=== PATIENT | male | born 1985 | race African-American/Black ===

== ENCOUNTER 2018-10-04 07:34 | Inpatient (IN) | payer OTHER ==
[2018-10-04] VITALS (13 sets, daily range): BP systolic 114–148; BP diastolic 69–98
[~2018-10-04] VITALS: Ht 203.2 cm; Wt 80.3 kg
[~2018-10-04 07:34] MED LIST: ACTOS30 MG ORAL; Dexamethasone 20mg/5ml IVP ONE; GLIPIZIDE10 MG PO; HYDROCODONE PO; METFORMIN HCL1000 M1 ORAL; ceFAZolin sod 1 GM in NS 55 ML IVPB ONE
[2018-10-04] MEDS ORDERED: LR 1000ml 1,000 ML IVLG SCH (09:24)
--- NOTE | 2018-10-04 09:25 | Anethesia Preoperative Eval ---
Anesthesia Pre-op PMH/ROS General Date of Evaluation: Oct 04, 2018 Time of Evaluation: 10:54 Anesthesiologist: Zoila ASA Score: ASA 2 Mallampati Score Class I : Soft palate, uvula, fauces, pillars visible Class II: Soft palate, uvula, fauces visible Class III: Soft palate, base of uvula visible Class IV: Only hard plate visible Mallampati Classification: Class II Surgeon: Angela Diagnosis: Back Pain Surgical Procedure: ALIF L5-S1 Anesthesia History: none Family History: no anesthesia problems Allergies: Coded Allergies: No Known Allergies (Unverified , 10/03/18) Medications: see eMAR Patient NPO?: Yes NPO Date: Oct 03, 2018 NPO Time: 2358 Past Medical History Cardiovascular: Reports: HTN Endocrine: Reports: DM Anesthesia Pre-op Phys. Exam Physician Exam Last Vital Signs Date Time Temp Pulse Resp B/P (MAP) Pulse Ox O2 Delivery O2 Flow Rate FiO2 10/04/18 08:30 98.1 85 20 128/76 (93) 96 10/04/18 08:20 Room Air Constitutional: NAD Neurologic: CN 2-12 intact Cardiovascular: RRR Respiratory: CTA Gastrointestinal: S/NT/ND Airway Exam Mallampati Score: Class II MO: full ROM: full Teeth: intact Anesthesia Pre-op A/P Risk Assessment & Plan Assessment: ASA 2 Plan: GA, SED, GlideScope Go Status Change Before Surgery: No Pre-Antibiotics Dru Grams Ancef IV Given Within 1 Hr of Incision: Yes Time Given: 14:19 Krishan Cummings MD Oct 04, 2018 09:25
[2018-10-04] MEDS ORDERED: LORazepam Inj 2mg/ml 1ml IV PRN (09:30)
[2018-10-04] MEDS ORDERED: Atropine Sulfate 0.4mg/ml inj IVP PRN (09:30)
[2018-10-04] MEDS ORDERED: Ketorolac 30mg Inj IV PRN ×2 (09:30)
[2018-10-04] MEDS ORDERED: Meperidine 50mg/ml Inj(FOR RIGORS ONLY) IVP PRN (09:30)
[2018-10-04] MEDS ORDERED: fentaNYL 100 mcg/2 mL IV PRN (09:30)
[2018-10-04] MEDS ORDERED: Metoclopramide 10mg/2ml Inj IVP PRN (09:30)
[2018-10-04] MEDS ORDERED: Midazolam 2mg/2ml Inj IVP PRN (09:30)
[2018-10-04] MEDS ORDERED: HYDROcodone/Acetamin 7.5/325 tab ORAL PRN (09:30)
[2018-10-04] MEDS ORDERED: HYDROcodone/Acetamin 5/325 tab ORAL PRN (09:30)
[2018-10-04] MEDS ORDERED: DiphenhydrAMINE 50mg/ml Inj IVP PRN (09:30)
[2018-10-04] MEDS ORDERED: Acetaminophen (Non formulary) 100 ML IV ONE (09:30)
[2018-10-04] MEDS ORDERED: oxyCODONE HCL/Acetaminophen 5/325mg ORAL PRN (09:30)
[2018-10-04] MEDS ORDERED: Hydromorphone 0.5mg/0.5ml inj IVP PRN (09:30)
[2018-10-04] MEDS ORDERED: Thrombin 5000 units TOPIC ONE ×2 (09:34→12:36)
[2018-10-04] MEDS ORDERED: Heparin 5000 units/ml inj ONE (09:34)
[2018-10-04] MEDS ORDERED: Lidocaine 1% 10mg/ml/Epi 0.005mg/ml 30ml vial INJ ONE (09:34)
[2018-10-04] MEDS ORDERED: Lidocaine 1% Plain 30 ml INJ ONE ×3 (09:35→12:22)
[2018-10-04] MEDS ORDERED: Bupivacaine w/Epi 0.5% 30ml Vial INJ ONE (09:35)
[2018-10-04] MEDS ORDERED: Ropivacaine 5mg/ml Vial 30ml INJ ONE (09:35)
[2018-10-04] MEDS ORDERED: Bacitracin 50000 Units Vial ONE (09:35)
[2018-10-04] MEDS ORDERED: Lidocaine 1% MPF 10mg/ml 5ml ONE (09:38)
[2018-10-04] MEDS ORDERED: Sodium Chloride 10ml vial INJ ONE (09:38)
[2018-10-04] MEDS ORDERED: fentaNYL 100 mcg/2 mL IV ONE ×3 (09:38→13:48)
[2018-10-04] MEDS ORDERED: Chloraseptic Spray 20mL Bottle ORAL PRN (10:15)
[2018-10-04] MEDS ORDERED: LORazepam 0.5mg tab ORAL PRN (10:15)
--- NOTE | 2018-10-04 10:19 | Pre-Procedure Note/Attestation ---
Pre-Procedure Note/Attestation Complete Prior to Procedure Planned Procedure: not applicable Procedure Narrative: ALIF L5-S1 Anterior Plate BMP Indications for Procedure Pre-Operative Diagnosis: Post trauma clinical instability pain Attestation I attest that I discussed the nature of the procedure; its benefits; risks and complications; and alternatives (and the risks and benefits of such alternatives ), prior to the procedure, with the patient (or the patient's legal customer field representative). I attest that, if there was a reasonable possibility of needing a blood transfusion, the patient (or the patient's legal customer field representative) was given the [facility] standardized written summary, pursuant to the Kedar Nicolas Blood Safety Act ([place] Health and Safety Code # 1645, as amended). I attest that I re-evaluated the patient just prior to the surgery and that there has been no change in the patient's H&P, except as documented below: Misael Miller MD Oct 04, 2018 10:19
[2018-10-04] MEDS ORDERED: Propofol 1,000mg/ 100ml btl IV ONE (11:00)
[2018-10-04] MEDS ORDERED: LR 1000ml ONE (11:00)
[2018-10-04] MEDS ORDERED: Sterile Water Irrig 1000ml IRRIG ONE (11:00)
[2018-10-04] MEDS ORDERED: PCA HYDROmorphone 1mg/ml 30 ML IV PRN ×2 (11:30)
[2018-10-04] MEDS ORDERED: Gelfoam Size TOPIC ONE (11:38)
[2018-10-04] MEDS ORDERED: NS Irrig 1000ml IRRIG ONE (12:33)
[2018-10-04] MEDS ORDERED: Glycopyrrolate 0.2mg/ml 1ml Vial ONE (13:33)
[2018-10-04] MEDS ORDERED: Neostigmine 1mg/ml 10ml Inj ONE (13:33)
--- NOTE | 2018-10-04 13:41 | Brief Operative Note ---
Immediate Post Operative Note Operative Note Pre-op Diagnosis: Post trauma clinical instability pain Procedure: Increased complexity vascular anatomy SSEP EMG Xray Magnification BMP ALIF L5-S1 with anterior internal plate fixation Post-op Diagnosis: same as pre-op Findings: consistent w/pre-op dx studies Surgeon: Joaquin DAVENPORT Additional Surgeons: Bill DAVENPORT Anesthesiologist: Zoila DAVENPORT Anesthesia: general Specimen: yes Complications: none Condition: stable Fluids: anesthesia Estimated Blood Loss: volume Drains: none Implant(s) used?: Yes Misael Miller MD Oct 04, 2018 13:41
[2018-10-04] MEDS ORDERED: Naloxone 0.4mg/ml Inj IVP PRN (13:45)
--- NOTE | 2018-10-04 14:08 | Immediate Post-Op Evaluation ---
Immediate Post-Op Evalulation Immediate Post-Op Evalulation Procedure: ALIF L5-S1 Date of Evaluation: Oct 04, 2018 Time of Evaluation: 14:19 IV Fluids: 1000 LR Blood Products: 0 Estimated Blood Loss: 40 Urinary Output: 0 Blood Pressure Systolic: 134 Blood Pressure Diastolic: 89 Pulse Rate: 63 Respiratory Rate: 16 O2 Sat by Pulse Oximetry: 100 Temperature (Fahrenheit): 97.6 Pain Score (1-10): 2 Nausea: No Vomiting: No Complications 0 Patient Status: awake, reacts, patent, extubated, none Hydration Status: adequate Dru Grams Ancef IV Given Within 1 Hr of Incision: Yes Time Given: 11:16 Krishan Cummings MD Oct 04, 2018 14:08
--- NOTE | 2018-10-04 14:09 | 48 Hour Post Anesthesia Eval ---
Post Anesthesia Evaluation Procedure: ALIF L5-S1 Date of Evaluation: Oct 04, 2018 Time of Evaluation: 16:32 Blood Pressure Systolic: 133 0: 78 Pulse Rate: 74 Respiratory Rate: 18 Temperature (Fahrenheit): 98.2 O2 Sat by Pulse Oximetry: 98 Airway: patent Nausea: No Vomiting: No Pain Intensity: 2 Cardiopulmonary Status: Stable Follow-up Care/Observations: 0 Post-Anesthesia Complications: 0 Follow-up care needed: N/A Krishan Cummings MD Oct 04, 2018 14:09
[2018-10-04] MEDS ORDERED: PCA HYDROmorphone 1mg/ml 30 ML IV ONE (14:42)
--- NOTE | 2018-10-04 15:52 | Diagnostic Imaging Report ---
Indication: Back pain Technique: Intraoperative fluoroscopic images submitted for archival the PACS Operating surgeon: Remington Miller Fluoroscopy time: 17.2 seconds Total fluoroscopy dose: 8.81 mGy Number of fluoroscopic images obtained: 3 Comparison: None Findings: Intraoperative images submitted for archival the PACS. Initial image demonstrates surgical material projecting anterior to the presumed L5-S1 disc space (note the entire lumbar spine not imaged to assess for the presence of transitional lumbosacral anatomy). Subsequent images demonstrate anterior fusion at this level by means of an anterior plate affixed by screws as well as interbody disc spacer/artificial disc material. Note that the radiologist was not present during image acquisition. Impression: Intraoperative images from spinal surgery. Please see operative report.
[2018-10-04] MEDS ORDERED: Rate Change PCA 1 Each MISC PRN (16:30)
[2018-10-04] MEDS: D5 1/2NS 1,000 ML IV SCH ×2 (16:45→19:23)
[2018-10-04] MEDS ORDERED: PCA Education Pamphlet MISC SCH (17:00)
--- NOTE | 2018-10-04 17:00 | NUR ---
NURSE NOTES: Pt is able to move extremities , no bowel sounds present. No nausea , lungs sounds clear. Pedal pulses present and palpable. Able to answer questions appropriately Addendum: 10/08/18 at 0644 by KANCHAN VASQUEZ RN nurse's notes: per patient has been passing gas but no BM yet
[2018-10-04] MEDS ORDERED: Labetalol 5mg/ml 20ml vial IV PRN (17:30)
[2018-10-04] MEDS: PCA shift volume MISC SCH (19:00)
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
--- NOTE | 2018-10-04 20:15 | NUR ---
Nursing Notes: received patient awake, alert and oriented; c/o of "15/10" pain of lower back; s/p alif L4-S1; encourage patient to use construction controller as ordered; non-pharmacological pain interventions also encouraged; patient understood teaching but seems to need reinforcement and encouragement. small serosanguineous drainage noted on the dressing, otherwise is dry and intact. call light and urinal within reach. will continue plan of care.
--- NOTE | 2018-10-04 20:32 | NUR ---
NURSE NOTES: Dr Astorga phoned in regards to insulin coverage and current IV fluids. Gave orders for intermediate sliding scale QID as he also gave orders to D/C current iv fluids and change to 1/2 NS at 150 cc/hr. IV is patent no signs of infiltration
--- NOTE | 2018-10-04 20:35 | NUR ---
NURSE NOTES: Pt is in stable condition voided after surgery. Is able to use IS properly . SCD is on functioning. Call light is in reach n required education and encouragement for use of stockkeeper pump
--- NOTE | 2018-10-04 20:38 | NUR ---
HAND-OFF: Report given to Laurie MORAN.
[2018-10-04] MEDS: oxyCONTIN 10mg tab ORAL SCH (20:41)
[2018-10-04] MEDS: ceFAZolin sod 1 GM in D5W 55 ML IV SCH (20:41)
--- NOTE | 2018-10-04 20:44 | NUR ---
NURSE NOTES: blood sugar reported to Tony at 178. PROBLEM MANAGER setting verified with a another setting Addendum: 10/04/18 at 2045 by Iqra Hall RN setting verified with nurse yadira
--- NOTE | 2018-10-04 21:15 | Operative Note - Dictated ---
DATE OF OPERATION: 10/04/2018 PRIMARY SURGEON: Misael Miller, Ph.D.; M.D. ADDITIONAL SURGEON: Kendell Khan M.D. Vascular Surgery. ANESTHESIA: Krishan Cummings M.D. general with intubation. ESTIMATED BLOOD LOSS: Less than 50 mL. COMPLICATIONS: None. POSTOP CONDITION: Good/stable. OPERATIVE PROCEDURE: 1. Anterior interbody reconstruction, fusion, correction deformity L5-S1. 2. Placement of bone morphogenic protein osteopromotive material. 3. Anterior internal plate fixation compressive L5-S1. 4. Extenuating circumstances, vascular anatomy. Please see separate dictation Dr. Khan. 5. SSEP/EMG. 6. Intraoperative fluoroscopy interpreted by surgeons. 7. High-powered microscopic magnification dissection and anterior internal plate fixation we have. DESCRIPTION OF PROCEDURE: The patient was brought to the operating room and in the supine position, general anesthesia with intubation was induced. IV antibiotics, IV Decadron administered 30 minutes prior to incision time. Anterior abdomen sterilely prepped and draped free in usual sterile fashion. Please see separate exposure and closure dictation by Dr. Khan, vascular surgery. Identification was undertaken in the AP and lateral planes under sterile conditions, fluoroscopic guidance with markers in place L5-S1. Level was marked. Markers removed. Annulotomy was performed with care taken with vascular anatomy aberration. Diskectomy was performed to but not through the posterior longitudinal ligament. Endplates were denuded of cartilaginous endplates without violation of subchondral bone. No cerebrospinal fluid leakage was noted anytime during the procedure. Appropriate trials were undertaken with AP and lateral fluoroscopic imaging demonstrating midline and correct alignment. Interbody Aero-L prosthesis containing bone morphogenic protein as osteopromotive material was tamped into position under direct observation. Fit excellent. Fluoroscopic guidance demonstrated excellent alignment in AP and lateral planes. Internal fixation flanges inserted, locked into position. Graft incorporated in fibrin glue. Anterior internal plate fixation was undertaken in a compressive fashion with AP and lateral fluoroscopic imaging demonstrating correct alignment and positioning. Wound was copiously irrigated with antibiotic-containing saline. Please see separate closure, Dr. Khan. Misael Miller M.D. DR: SEEMA JOB#: [id number] CC:
[2018-10-04] MEDS: NovoLOG Insulin Flexpen SUBQ SCH (22:15)
[2018-10-05] VITALS: BP 105/62
--- NOTE | 2018-10-05 01:30 | Operative Note - Dictated ---
DATE OF OPERATION: 10/04/2018 VASCULAR SURGEON: Kendell Khan M.D. SPINE SURGEON: Misael Miller M.D. PREOPERATIVE DIAGNOSIS: Lumbar pain. POSTOPERATIVE DIAGNOSIS: Lumbar pain. PROCEDURE PERFORMED: 1. Anterior retroperitoneal exposure of L5-S1 vertebral interspace, right retroperitoneal approach. 2. Ligation of left internal iliac vein. INDICATIONS: The patient is a very pleasant gentleman who was seen prior to surgery. He is scheduled for an anterior spine operation. He had no prior anterior spine surgery. No history of deep venous thrombosis or bleeding complications. He has been made aware of the risks of surgery including vascular injury, possible need for blood transfusion, deep venous thrombosis. DESCRIPTION OF FINDINGS: A low vertical midline incision was used. A right retroperitoneal approach was used. There was no peritoneal or ureteral violation. There was no vascular injury. However, it was clear after exposure that there was a large internal iliac vein coursing directly over the midportion of the vertebral interspace at L5-S1. It was tracing in the superior cephalad direction until the confluence with the left external iliac vein was identified. Once we were certain that this was not the left common iliac vein, it was then retracted using a 2-0 silk tie. It was triply ligated with 2-0 silk ligature and vascular clips proximally and distally and divided. retracted the iliac vessels laterally to expose the anterior surface of L5 and S1. Fluoroscopy used to confirm the appropriate level. On completion of instrumentation, there were palpable femoral and pedal pulses. BLOOD LOSS: Less than 100 mL. COMPLICATIONS: None. DESCRIPTION OF PROCEDURE: The patient was taken to the operating room. General anesthesia was used. IV antibiotics were given. The patient's abdomen was prepped and draped. Appropriate time-out for procedure taken. A low vertical midline incision was made infraumbilically. The anterior fascia was incised longitudinally in the midline. A plane was identified posterior to the right rectus abdominis and developed posterolaterally to the patient's right. The retroperitoneal space was entered below the arcuate line. The peritoneum and ureter were mobilized towards the patient's left exposing the right common iliac artery and vein. Dissection was carried superiorly along the right common iliac vein. The anterior surface of L5-S1 was then palpated. This allowed us to retract the soft tissue off the anterior surface of the L5-S1. It was clear that there was a large venous structure directly over the midportion of L5-S1. At this time, careful dissection was carried to ensure that this was not the left common iliac vein. The confluence of the vascular structure with the right common iliac vein was right at the level of L5-S1. Therefore, dissection was then carried lateral to this and free space was identified and then we continued laterally until the left external iliac vein was able to be identified just posterior to the iliac artery. At this time, we then followed the dissection superiorly until we were sure that the venous structure did join the external iliac vein the common iliac vein. Therefore, at this time, ligated by encircling using a 2-0 silk tie, which was then ligated proximally and distally and three vascular clips placed proximally and distally to ensure ligation. It was then divided. This allowed us to retract the iliac vessels laterally towards the anterior surface of the L5-S1. The Omni retractor blades were set in place. Fluoroscopy was used to confirm the appropriate level. Then, the instrumentation was performed at L5-S1 and dictated separately. The retractors were then removed. The peritoneum and ureter were intact. The iliac vessels were intact. The anterior fascia was then closed using #1 PDS in a running fashion. The skin and subcutaneous tissue were closed with 3-0 Vicryl and 4-0 Monocryl in a running subcuticular closure technique. Estimated blood loss less than 100 mL. Complications none. Kendell Khan M.D. DR: Blanco JOB#: [id number] CC:
[2018-10-05] MEDS: ceFAZolin sod 1 GM in D5W 55 ML IV SCH ×2 (03:51→11:28)
[2018-10-05 04:01] VITALS: BP 108/74
[2018-10-05] MEDS: NovoLOG Insulin Flexpen SUBQ SCH ×4 (05:49→20:34)
[2018-10-05] MEDS: PCA shift volume MISC SCH ×2 (06:42→19:13)
--- NOTE | 2018-10-05 06:44 | NUR ---
Nurse's notes: patient ambulated along the hallway without any incident of falls. however, admitted to severe pain on his lower back and incision site; assisted patient safely back to bed. per patient has passed gas and has been burping. Pain managed well with MOLDING LINE OPERATOR dilaudid and 1.5mg of dilaudid for breakthrough pain. Dr. Collier came to see patient. will continue to monitor.
[2018-10-05 08:00] VITALS: BP 136/67
--- NOTE | 2018-10-05 08:14 | NUR ---
Pt. in bed resting AOx4. Pt is on AUTOMOTIVE TIRE WORKER pump. Pt is NPO. Pt is receiving fluids, Iv is patent and intact. Bed is locked and in lowest position. Call light is within reach. will continue plan of care and pain management.
[2018-10-05] MEDS: oxyCONTIN 10mg tab ORAL SCH ×2 (09:07→20:54)
--- NOTE | 2018-10-05 09:58 | Cardiology Progress Note ---
Assessment/Plan Assessment/Plan [id number] dvt ppx iss coverage Subjective Cardiovascular: Denies: chest pain, lightheadedness, palpitations Respiratory: Denies: shortness of breath Gastrointestinal/Abdominal: Reports: abdominal pain Genitourinary: Denies: burning Objective Last 24 Hour Vital Signs Date Time Temp Pulse Resp B/P (MAP) Pulse Ox O2 Delivery O2 Flow Rate FiO2 10/05/18 08:00 99.0 78 18 136/67 (90) 97 10/05/18 03:56 18 10/05/18 00:00 98.5 81 20 105/62 (76) 95 10/05/18 00:00 20 10/04/18 22:19 98.8 10/04/18 21:00 Room Air 10/04/18 20:27 98.8 80 18 114/74 (87) 96 10/04/18 20:00 20 10/04/18 19:27 98.9 80 20 130/72 (91) 95 10/04/18 17:27 98.1 74 19 115/69 (84) 98 10/04/18 17:04 Nasal Cannula 3.0 10/04/18 16:57 97.3 69 20 124/72 (89) 97 10/04/18 15:30 98.0 10/04/18 15:15 14 10/04/18 15:10 98.0 69 14 140/80 100 Nasal Cannula 3 10/04/18 15:05 68 20 136/74 100 Nasal Cannula 3 10/04/18 15:05 97.9 10/04/18 15:00 18 10/04/18 14:50 64 20 148/91 100 Nasal Cannula 3 10/04/18 14:35 69 19 148/92 100 Nasal Cannula 3 10/04/18 14:28 65 18 146/92 100 Nasal Cannula 3 10/04/18 14:18 71 19 143/98 100 Simple Mask 6 10/04/18 14:13 61 17 137/87 100 Simple Mask 6 10/04/18 14:09 74 18 98 10/04/18 14:08 97.6 61 16 134/87 100 Simple Mask 6 10/04/18 14:08 63 16 100 General Appearance: no apparent distress, alert Neck: supple Cardiovascular: normal rate Respiratory/Chest: lungs clear Abdomen: hypoactive bowel sounds Extremities: no swelling Intake and Output 10/04/18 10/05/18 19:00 07:00 Intake Total 1300 ml 1067.5 ml Output Total 40 ml 800 ml Balance 1260 ml 267.5 ml Intake IV Total 1300 ml 1067.5 ml Other 0 ml Output Urine Total 800 ml Estimated Blood Loss 40 ml Laboratory Tests Test 10/04/18 21:13 Hemoglobin A1c 10.4 % (4.3-6.0) H Sonny Astorga MD Oct 05, 2018 09:58
--- NOTE | 2018-10-05 11:15 | Consultation ---
DATE OF CONSULTATION: 10/04/2018 CARDIOLOGY CONSULTATION CONSULTING PHYSICIAN: Sonny Astorga M.D. REFERRING PHYSICIAN: Misael Miller M.D. REASON FOR REFERRAL: Postoperative medical care. HISTORY OF PRESENT ILLNESS: This is a 33-year-old gentleman, who I saw for the first time within the last 2 weeks. The patient basically has a history of diabetes, but not clear how compliant he was. When he saw me on initial evaluation, nonfasting blood sugar was in the 370s. A1c was about 10. The patient has been having pain and required surgery on his back and this was performed yesterday. In anticipation of that, his diabetic medications were adjusted and on the day of followup a few days prior to this procedure, his blood sugar in the office was 80. In fact, I decreased one of his medications prior to his surgery to avoid any hypoglycemic episodes. He has not had any hypoglycemic episodes. Nevertheless, he underwent the surgery yesterday and has done well. He has had pain however postoperatively as expected. Does not really have any shortness of breath. No chest pain or pressure. Has been up and about. Has not had much in terms of dizziness although initially he did have some mild nausea. There is no sore throat. PAST MEDICAL HISTORY: Diabetes mellitus that was diagnosed in 2006, history of hypertension that apparently resolved, questionable history of one episode of atrial fibrillation in [place] short duration, otherwise no other medical problems. PAST SURGICAL HISTORY: He has no prior surgeries. ALLERGIES: He has no known drug allergies. FAMILY HISTORY: No premature coronary artery disease. SOCIAL HISTORY: Tobacco less than a pack per day. Alcohol, occasionally. Drugs, he denies. Not . No kids. He works as a body guard. REVIEW OF SYSTEMS: GASTROINTESTINAL: Somewhat nauseated. No vomiting. He has not had a bowel movement. He has not passed gas. GENITOURINARY: He has no problems urinating. PULMONARY: Denies any coughing or wheezing. CONSTITUTIONAL: Denies any fevers, chills, or night sweats. NEUROLOGIC: No numbness and tingling sensation in his feet. PHYSICAL EXAMINATION: VITAL SIGNS: Blood pressure 114/74, temperature 98.8, respirations of 18, pulse of 80, this is on room air. GENERAL: Shows be tall young gentleman, in no respiratory distress. NECK: Supple. No jugular venous distention. LUNGS: Clear to auscultation and percussion. CARDIAC: S1 is normal. S2 is normal. Regular rate and rhythm. No heaves, thrills, or gallops noted. ABDOMEN: Soft. Some tenderness. No guarding. No rigidity. Bowel sounds are hypoactive. There is a surgical dressing. The lower part of the abdomen midline appears to be clean and dry. EXTREMITIES: Pneumatic compression stockings are in place. There is no edema of the lower extremities at this time. LABORATORY DATA: He had A1c of 10.4 at time of this evaluation yesterday, which was actually better than 11.7 that he had week or 10 days earlier. ASSESSMENT AND PLAN: 1. Diabetes mellitus. 2. Lumbar spine injury. 3. Sleep apnea. The patient's diabetes has been poorly controlled. Medications have recently been adjusted and was much better controlled 2 days prior to his surgery. He is NPO. At the present time, he is on insulin sliding scale. IV fluids have been changed to accommodate the fact that he is a diabetic. Pneumatic compression stockings to be used for DVT prophylaxis. Pain management has been provided by Dr. Collier. I have already discussed with the nursing staff. His glipizide, metformin, and Actos were all on hold at the present time. He is encouraged to ambulate as allowed and further recommendations as become necessary. While he is NPO, his sliding scale insulin will be continued for the time being. It is recommended as it was previously that the patient follow up with his primary care physician for long-term blood sugar control and to obtain a glucometer to allow him to watch his blood sugars. Weight loss and exercise and diet were fully discussed with the patient previously. Sonny Astorga M.D. DR: DIANN JOB#: [id number] CC:
[2018-10-05 12:00] VITALS: BP 104/70
--- NOTE | 2018-10-05 13:21 | General Progress Note ---
Progress Note Progress Note POD 1 minimal preop back pain post op abd pain minimal ambulating (-) gas n/c intact Misael Miller MD Oct 05, 2018 13:21
[2018-10-05] MEDS: HYDROmorphone 1mg/ml Carpuject SUBQ PRN (15:11)
--- NOTE | 2018-10-05 15:12 | NUR ---
NURSE NOTES: held on to dilaudid for more than 15 min because pt was about to do physical therapy. Administered med as soon as pt got back into room.
--- NOTE | 2018-10-05 15:41 | NUR ---
PT Note PT anne completed, treatment initiated. Patient c/o increased pain during bed mobility tasks, requiring extensive assist to accomplish this task. Patient needs PT to train and instruct on proper body mechanics and log rolling techniques. Patient will also need a raised toilet seat for home use. Addendum: 10/05/18 at 1541 by MARGA LILLY PT Amended: Links added.
[2018-10-05 16:00] VITALS: BP 120/75
--- NOTE | 2018-10-05 19:37 | NUR ---
NURSE NOTES: Pt is in bed, awake and alert.Room air. No acute distress noted. Pt is NPO, has not passes gas yet. Pt's surgical site on anterior abdomen is dry and intact. Pt ambulated twice during day shift per RN. PT is on Dilaudid DIRECTOR GRAPHICS pump. Pain medication and assessments will be done as needed. 1/2 NS running at 150ml/hr. Pt has SCDs on. Pt is requesting a mild laxative to have bowel movement. Dr. Astorga will be contacted. Pt instructed to call for assistance before getting out of bed. Bed locked low in position,side rails up and call light within reach. Pt will be monitored.
--- NOTE | 2018-10-05 19:38 | NUR ---
HAND-OFF: Report given to Rosalino/RN pt in stable condition, on MACHINE SHOP INSTRUCTOR pump.
[2018-10-05 20:00] VITALS: BP 112/70
[2018-10-06] VITALS: BP 136/92
[2018-10-06 04:00] VITALS: BP 127/70
--- NOTE | 2018-10-06 04:15 | NUR ---
NURSE NOTES: Pt is in bed, asleep. No acute distress noted. Pt does not complain of pain. Vitals stable. Pt was encouraged to use incentive spherometer.
--- NOTE | 2018-10-06 05:00 | NUR ---
NURSE NOTES: Pt ambulated the length of hallway, tolerated well.
[2018-10-06] MEDS: HYDROmorphone 1mg/ml Carpuject SUBQ PRN (05:02)
[2018-10-06] MEDS: NovoLOG Insulin Flexpen SUBQ SCH ×4 (06:19→20:33)
[2018-10-06] MEDS: PCA shift volume MISC SCH (07:00)
--- NOTE | 2018-10-06 07:30 | NUR ---
HAND-OFF: Report given to Adrianne Stephenson LVN.
[2018-10-06 08:00] VITALS: BP 128/66
[2018-10-06] MEDS: oxyCONTIN 10mg tab ORAL SCH ×2 (08:34→20:27)
--- NOTE | 2018-10-06 09:15 | NUR ---
PT Note Patient is seen ambulating in hallway independently without any AD with decreased nafisa. Patient was given a FWW; noted improved nafisa. Patient was later observed lying supine in bed, c/o abdominal surgical pain. Patient was instructed on the importance of proper positioning and maintaining the neutral position of the spine. Patient refused to participate in any PT this AM; c/o fatigue.
[2018-10-06] MEDS ORDERED: 1/2 NS 1000ml IV ONE ×2 (09:20→15:24)
[2018-10-06] MEDS ORDERED: Rate Change PCA 1 Each MISC PRN (11:00)
[2018-10-06 12:05] VITALS: BP 138/77
--- NOTE | 2018-10-06 15:26 | NUR ---
NURSE NOTES: Dr Collier called back and made aware of the bloat and no new order noted. patient able to ambulate and will cont to monitor.
[2018-10-06 16:00] VITALS: BP 131/77
--- NOTE | 2018-10-06 17:05 | Cardiology Progress Note ---
Assessment/Plan Assessment/Plan 1. Diabetes mellitus. 2. Lumbar spine injury. 3. Sleep apnea. no flatus of bm yet ambualte IS dvt px ISS bs 95-113!! Subjective Cardiovascular: Denies: chest pain, lightheadedness Respiratory: Denies: shortness of breath Gastrointestinal/Abdominal: Reports: abdominal pain, other - no flauts or bm Genitourinary: Reports: burning Objective Last 24 Hour Vital Signs Date Time Temp Pulse Resp B/P (MAP) Pulse Ox O2 Delivery O2 Flow Rate FiO2 10/06/18 16:00 98.0 85 17 131/77 (95) 97 10/06/18 16:00 18 10/06/18 12:05 98.2 80 18 138/77 (97) 95 10/06/18 12:00 18 10/06/18 09:04 98.9 10/06/18 09:00 Room Air 10/06/18 08:00 98.3 83 18 128/66 (86) 95 10/06/18 08:00 18 10/06/18 04:00 98.9 95 20 127/70 (89) 98 10/06/18 04:00 18 10/06/18 00:00 18 10/06/18 00:00 99.9 93 20 136/92 (107) 97 10/05/18 21:00 Room Air 10/05/18 20:00 99.8 83 20 112/70 (84) 99 10/05/18 20:00 18 General Appearance: no apparent distress, alert Neck: supple Cardiovascular: normal rate Respiratory/Chest: lungs clear Abdomen: soft, hypoactive bowel sounds Extremities: non-tender, no swelling Intake and Output 10/05/18 10/06/18 18:59 06:59 Intake Total 1500 ml Balance 1500 ml Intake IV Total 1500 ml # Voids 2 Microbiology Date/Time Source Procedure Growth Status 10/04/18 09:05 Nasal Nares MRSA Culture - Final NO METHICILLIN RESISTANT STAPH AUREUS... Complete Sonny Astorga MD Oct 06, 2018 17:05
[2018-10-06] MEDS: oxyCODONE 5mg IR tab ORAL PRN (17:16)
[2018-10-06] MEDS ORDERED: PCA shift volume MISC SCH (19:00)
--- NOTE | 2018-10-06 19:12 | NUR ---
HAND-OFF: Report given to MARQUIS Torres
[2018-10-06 20:00] VITALS: BP 123/76
--- NOTE | 2018-10-06 20:15 | Progress Note ---
DATE: 10/06/2018 ACUTE PAIN MANAGEMENT PHYSICIAN PROGRESS NOTE MEDICATIONS: Medication administration record reviewed. Medication include IV fluids, Pepcid, sliding-scale insulin, OxyContin. P.r.n. medications include Ativan, Benadryl, Soma, Chloraseptic spray, Catapres, oxycodone, Mylanta, Dilaudid CLINICAL LAB CLERK, Tylenol, Zofran, Narcan, and subcutaneous Dilaudid. LABORATORY STUDIES: No interval laboratory studies. OBJECTIVE: VITAL SIGNS: Within normal limits. T-max at midnight was 99.9, currently afebrile 98.3, pulse 83, respirations 18, oxygen saturation 95% on room air, and blood pressure 128/66. I spent over 60 minutes in consultation today. I saw the patient at the bedside with the nurse RN, Debo. I discussed the case with the surgeon, Dr. Miller. The patient continues to progress well. He has not yet passed flatus and we will continue him NPO except for ice chips and medications for now, until there is better evidence of tenriism of bowel function. The patient also continued on IV fluids for hydration. The patient is breathing comfortably on room air. He denies any chest pain or shortness of breath. The patient has no nausea symptoms and he is hungry, which is encouraging. The patient has been tolerating a scheduled OxyContin without any troubles. I will continue the CLINICAL LAB CLERK for a few more hours and then discontinue the CLINICAL LAB CLERK this afternoon. We will continue the breakthrough doses of subcutaneous Dilaudid and oral oxycodone for breakthrough pain along with the scheduled q.4 hours dosing of OxyContin. The patient has been very compliant and has been following instructions well. He is using a front wheel walker to ambulate, he is progressing well with physical therapy. At this point, we are simply waiting for improvement in bowel function after his ALIF procedure. Of note, I discussed with the hospital nursing supervisor product inspection and the surgeon, Dr. Miller. The patient states that he has a subpoena for a mandatory witness appearance in the court in the [facility] of [place] tomorrow SundayOctober 07 at 8 a.m. I believe these are unusual circumstances, Dr. Miller has been made aware of this court subpoena and the patient's request to attend this mandatory requirement. Dr. Miller has ordered the nurses and permitted for the patient to be transported early tomorrow morning SundayOctober 07 by family to make his court appearance and the patient will then return immediately back to his hospital bed as the patient is not ready to be discharged after his spinal fusion surgery. The intravenous access will be removed prior to leaving and the patient agrees to be compliant following any diet orders during this quick departure from the hospital. Renny Collier M.D. DR: DONN JOB#: [id number] CC:
--- NOTE | 2018-10-06 22:51 | NUR ---
NURSE NOTES: Patient in bed awake and oriented. VSS. No SOB noted. Bowel sounds present. no BM yet. Dressing is clean and intact. Needs attended. Call light within reach. In stable condition.
[2018-10-07 04:00] VITALS: BP 135/78
--- NOTE | 2018-10-07 04:00 | Progress Note ---
DATE: 10/07/2018 ACUTE PAIN MANAGEMENT PHYSICIAN PROGRESS NOTE MEDICATIONS: Medication administration record reviewed. Medications include IV fluids, Pepcid, sliding scale insulin, OxyContin controlled release 10 mg q.12 h., Ativan, Benadryl, Soma, Chloraseptic spray, Catapres, , Mylanta, Tylenol, Zofran, Narcan, and Dilaudid subcutaneous. LABORATORY STUDIES: No interval laboratory studies. OBJECTIVE: VITAL SIGNS: Within normal limits. Afebrile, pulse 100, respirations 18, blood pressure 123/76, and oxygen saturation 98% on room air. I spent over 60 minutes in consultation today. I saw the patient at the bedside with the nurse RN, Sachin. I discussed the case with the surgeon, Dr. Miller. The patient is uncertain if he had positive flatus earlier. He has noted an abdominal bloating. I did encourage increased ambulation to help promote flatus. He remains on IV fluids and we will trial him on a diabetic clear liquid diet for lunch later today, presuming that he continues to pass flatus. I will continue IV fluids for now until any nausea problems are not evident. The scheduled OxyContin is helpful for his baseline pain and he is requiring only rare breakthrough doses of narcotics. He has used Soma sparingly and is tolerating the 20 mg oral oxycodone instant release dose without any adverse side effects. The patient is pleasant and does not appear to be anxious. He is very compliant. We will continue to advance his ambulation once the flatus frequency accelerates, advance his diet until he has a bowel movement after his ALIF procedure. I did leave a prescription for 75 tablets of oxycodone instant release 20 mg tablets for outpatient usage. Renny Collier M.D. DR: MAYE JOB#: [id number] CC:
[2018-10-07] MEDS: NovoLOG Insulin Flexpen SUBQ SCH ×4 (05:34→20:55)
[2018-10-07] MEDS: oxyCODONE 5mg IR tab ORAL PRN ×2 (05:36→17:52)
--- NOTE | 2018-10-07 05:36 | NUR ---
NURSE NOTES: IV site removed patient getting ready for court. PRN pain medication given. Needs attended. In stable condition.
--- NOTE | 2018-10-07 07:59 | NUR ---
NURSE NOTES: Per report of outgoing nurse pt out of Hospital for court purposes. Will return . Will update notes when pt returns
--- NOTE | 2018-10-07 08:45 | NUR ---
PT NOTE Attempted to see patient for PT treatment. Patient out of hospital for court purposes. Will re-attempt later.
[2018-10-07] MEDS: oxyCONTIN 10mg tab ORAL SCH ×2 (09:00→20:49)
--- NOTE | 2018-10-07 11:41 | NUR ---
NURSE NOTES: Pt remains out of facility upon this writing. Charge nurse made aware, morning assessments not done.
--- NOTE | 2018-10-07 12:49 | NUR ---
NURSE NOTES: pt remains out of facility
--- NOTE | 2018-10-07 13:35 | NUR ---
PT NOTE Patient remains out of the facility, will follow up tomorrow.
--- NOTE | 2018-10-07 13:46 | NUR ---
NURSE NOTES: Upon this writing pt remains out of facility for court purposes
--- NOTE | 2018-10-07 13:52 | NUR ---
NURSE NOTES: Dr Collier phoned facility , made aware that pt remains out of facility. Informed that pt missed am dose of Oxycodone . Gave instructions not to give am even if pt ask, inform him he needs to wait till 9pm dose. If he is in pain prn is available
--- NOTE | 2018-10-07 14:48 | NUR ---
NURSE NOTES: Pt has not returned from errand to court.
--- NOTE | 2018-10-07 15:00 | NUR ---
NURSE NOTES: Pt remains out Dr Astorga made aware. Stated he did not give approval for pt to leave. Stated he if did not return to discharge pt AMA
--- NOTE | 2018-10-07 15:45 | NUR ---
NURSE NOTES:carlita ponce take up supervisor notified re:back to floor fr.out on pass re:court appearance.
--- NOTE | 2018-10-07 15:45 | NUR ---
NURSE NOTES:adrian ponce(primary nurse)aware re:pt.back to floor fr.out on pass re:court appearance,came back with male psychological anthropologist,no c/o pain,claims he passed gas already.
--- NOTE | 2018-10-07 18:19 | NUR ---
NURSE NOTES: Pt has between out of facility since 639. IV reamins pending, pt wanting to go outside for air , aware
--- NOTE | 2018-10-07 18:30 | NUR ---
NURSE NOTES: Pt blood Sugar taken when he returned 140 mg/dl covered with 3 units. Morning assessments and afternoon assessment not done pt out of facility most of shift. IV started at end of shift. Required new line. D/C prior to exit t 0640
--- NOTE | 2018-10-07 19:00 | NUR ---
NURSE NOTES: Pt IV started to left forearm, 18 gauge. Pt has yet to have a bowel movement. bowel sounds are active. Per approval of Dr Nur pt can have regular diet in am
--- NOTE | 2018-10-07 19:49 | Cardiology Progress Note ---
Assessment/Plan Assessment/Plan 1. Diabetes mellitus. 2. Lumbar spine injury. 3. Sleep apnea. some flatus no bm yet ambualte IS dvt px ISS bs 140-[address] and came back to the hospital is on clears now Subjective Cardiovascular: Denies: chest pain, lightheadedness Respiratory: Denies: shortness of breath Gastrointestinal/Abdominal: Reports: abdominal pain, other - flatus no bm Genitourinary: Denies: burning Objective Last 24 Hour Vital Signs Date Time Temp Pulse Resp B/P (MAP) Pulse Ox O2 Delivery O2 Flow Rate FiO2 10/07/18 04:00 98.3 95 18 135/78 (97) 95 10/06/18 21:00 Room Air 10/06/18 20:00 97.9 100 18 123/76 (92) 98 General Appearance: no apparent distress, alert Neck: supple Cardiovascular: normal rate Respiratory/Chest: lungs clear Abdomen: soft, hypoactive bowel sounds Extremities: no swelling Intake and Output 10/06/18 10/07/18 18:59 06:59 Intake Total 750 ml 1350 ml Output Total 1700 ml Balance 750 ml -350 ml Intake IV Total 750 ml 1350 ml Output Urine Total 1700 ml Sonny Astorga MD Oct 07, 2018 19:49
[2018-10-07 21:00] VITALS: BP 139/81
[2018-10-08] VITALS: BP 129/81
[2018-10-08] MEDS ORDERED: HYDROmorphone 1mg/ml Carpuject SUBQ PRN (00:58)
--- NOTE | 2018-10-08 01:30 | Progress Note ---
DATE: 10/08/2018 ACUTE PAIN MANAGEMENT PHYSICIAN PROGRESS NOTE MEDICATIONS: Medication administration record reviewed. Medications include Tylenol, Mylanta, Soma, Catapres, Benadryl, Pepcid, Dilaudid, Ativan, Narcan, Zofran, OxyContin, and Chloraseptic spray. LABORATORY STUDIES: No interval laboratory studies. OBJECTIVE: Vital signs within normal limits. Afebrile. Pulse 86, respirations 18, blood pressure 139/81, and oxygen saturation 96% on room air. I saw the patient at the bedside and discussed the case with the nurse, Sachin. I spent over 60 minutes in consultation today. The patient has been ambulating more frequently and did start passing positive flatus. He tolerated clear liquid diet and has been advanced to a diabetic diet by Dr. Astorga. The patient has had no nausea symptoms. Therefore, I will Hep-Lock his IV fluids and encourage movement in and out of bed. The patient will continue with the scheduled OxyContin q.12 hours. Breakthrough Roxicodone 25 mg instant release is available every three hours p.r.n. for moderate pain and I will continue the breakthrough Dilaudid as well, which the patient has not used for nearly 48 hours. The patient will continue ambulating as aggressively as possible to help restore his bowel function. We will await a bowel movement to signify complete mormon of bowel function after his ALIF procedure. The patient is pleasant without any anxiety symptoms and is afebrile with normal vital signs. Renny Collier M.D. DR: CAMILO JOB#: [id number] CC:
[2018-10-08 04:00] VITALS: BP 148/80
[2018-10-08] MEDS: NovoLOG Insulin Flexpen SUBQ SCH ×4 (06:10→20:21)
--- NOTE | 2018-10-08 06:27 | NUR ---
nurse's notes: no incidents of falls, injuries or trauma reported as of this time. Surgical dressing on the mid lower abdomen remains intact but noted with small amount of dried drainage. pain managed well with scheduled oxycontin; no requests for breakthrough pain made. slept well during the night. denies N/V; tolerated clear liquid diet; advanced diet to regular as ordered. IVF discontinued; heplock remains patent, clamped as of this time. no s/s of hypoglycemia reported. will continue to monitor.
[2018-10-08] MEDS: oxyCODONE 5mg IR tab ORAL PRN ×3 (07:45→20:06)
[2018-10-08] MEDS: oxyCONTIN 10mg tab ORAL SCH ×2 (08:48→21:42)
[2018-10-08 09:46] VITALS: BP 141/77
[2018-10-08 12:00] VITALS: BP 118/72
--- NOTE | 2018-10-08 12:16 | NUR ---
CLIENT FINANCE ANALYSTRESULTS ENGINEER SI: LUMBAR INSTABILITY, POD T. 98.8 HR 85 RR 20 B/P 141/79 IS: PEPCID DIALUDID IV OXYCODONE PO MED/SURG STATUS
[2018-10-08] MEDS: metFORMIN 500mg tab ORAL SCH ×2 (12:50→17:37)
--- NOTE | 2018-10-08 13:42 | Cardiology Progress Note ---
Assessment/Plan Assessment/Plan 1. Diabetes mellitus. 2. Lumbar spine injury. 3. Sleep apnea. has flatus no bm yet and eating regualr diet as well ambulate IS dvt px refused ISS bs 140-150 has a regular diet had flatus but nto bm mag citrate given he is walking allover seem in nad i gave him instruction for Glucophage to day and as his po intake bakc to normal add cristofer glipizide once a day and 2 day later add cristofer actose once a day as well i gave prescription for him to purchase glucometer and lancet adn wipes and test strips to check his bs at home every am before breakfast if has bm will dc home later today Subjective Cardiovascular: Denies: chest pain, lightheadedness, palpitations Respiratory: Denies: shortness of breath Gastrointestinal/Abdominal: Denies: abdominal pain Genitourinary: Denies: burning Objective Last 24 Hour Vital Signs Date Time Temp Pulse Resp B/P (MAP) Pulse Ox O2 Delivery O2 Flow Rate FiO2 10/08/18 12:00 98.4 86 18 118/72 (87) 92 10/08/18 09:46 98.8 103 20 141/77 (98) 92 10/08/18 09:18 98.5 10/08/18 08:21 Room Air 10/08/18 04:00 98.5 91 18 148/80 (102) 95 10/08/18 00:00 98.6 92 18 129/81 (97) 96 10/07/18 21:00 98.3 86 18 139/81 (100) 96 10/07/18 21:00 Room Air General Appearance: no apparent distress Neck: supple Cardiovascular: normal rate Respiratory/Chest: lungs clear Abdomen: normal bowel sounds, soft Extremities: no swelling Intake and Output 10/07/18 10/08/18 19:00 07:00 Intake Total 1100 ml Output Total 1500 ml Balance -400 ml Intake Oral 500 ml IV Total 600 ml Output Urine Total 1500 ml Sonny Astorga MD Oct 08, 2018 13:42
[2018-10-08] MEDS ORDERED: Magnesium Citrate Liq Btl ORAL SCH (14:00)
[2018-10-08 16:00] VITALS: BP 143/74
[2018-10-08] MEDS ORDERED: GlipiZIDE 5mg tab ORAL SCH (17:15)
--- NOTE | 2018-10-08 19:00 | NUR ---
NURSE NOTES: CONDITION STABLE. IN NO ACUTE DISTRESS.
--- NOTE | 2018-10-08 19:13 | NUR ---
HAND-OFF: Report given to Baldo SCHMITT RN.
--- NOTE | 2018-10-08 19:30 | NUR ---
NURSE NOTES: Patient in the toilet room. Not in acute respiratory distress. Instructed the use of call light. Call light and needs in reach. Bed in lowest position and lock engaged. Will continue to monitor.
[2018-10-08 20:00] VITALS: BP 119/74
[2018-10-08] MEDS ORDERED: Magnesium Citrate Liq Btl ORAL ONE (23:00)
[2018-10-09] VITALS: BP 124/76
[2018-10-09 04:00] VITALS: BP 121/64
[2018-10-09] MEDS: oxyCODONE 5mg IR tab ORAL PRN ×2 (06:06→14:51)
[2018-10-09] MEDS: NovoLOG Insulin Flexpen SUBQ SCH ×2 (06:08→12:32)
--- NOTE | 2018-10-09 07:18 | NUR ---
HAND-OFF: Report given to DEAN Rendon.
--- NOTE | 2018-10-09 07:25 | NUR ---
NURSE NOTES: Patient lying in bed awake. Complain of pain 7/10 on surgical site and will administer pain medication as ordered. Skin intact and dry. Surgical dressing stained. IV dressing intact and dry. Bed lowest position. Call light within reach. Will continue to monitor.
[2018-10-09 08:00] VITALS: BP 104/59
[2018-10-09] MEDS: metFORMIN 500mg tab ORAL SCH (09:04)
[2018-10-09] MEDS: oxyCONTIN 10mg tab ORAL SCH (09:04)
[2018-10-09 12:00] VITALS: BP 130/78
--- NOTE | 2018-10-09 14:00 | Progress Note ---
DATE: 10/05/2018 ACUTE PAIN MANAGEMENT PHYSICIAN PROGRESS NOTE LABORATORY STUDIES: From last night shows hemoglobin A1c of 10.4. OBJECTIVE: VITAL SIGNS: Shows afebrile, pulse 81, respirations 20, blood pressure 105/62, and oxygen saturation 95% on room air. MEDICATIONS: Medication administration record reviewed. Medications include IV fluids, Pepcid, sliding-scale insulin, had Dilaudid PAPER AND PULP MILL OPERATOR, OxyContin, Ancef, Ativan, Benadryl, Soma, Chloraseptic spray, Catapres, oxycodone, Mylanta, Dilaudid, Tylenol, and Zofran. I spent over 60 minutes in consultation today. I discussed the case with the surgeon, Dr. Miller and the nurse RN, Stacy, but the patient looks very good. He is voiding urine. He has already been out of bed ambulating in the hallway. He is compliant using his incentive spirometer. The nightly dose of OxyContin 10 mg is well tolerated without any adverse side effects. The patient is already burping and we will wait for positive flatus until we start advancing his diet. The patient denies any nausea symptoms. The patient is very realistic with his expected postoperative pain levels. I did leave a prescription for 75 tablets of oxycodone instant release 20 mg. I did examine the patient's preoperative bottle of oxycodone instant release 20 mg tablets, which has only about 10 pills remaining from the original quantity of 60. The patient has been pleasant, he has been cooperative and following instructions. He is extremely compliant and in good spirits. We will await for the patient's further advancing with physical therapy training as tolerated. He is voiding urine well. We will wait for positive flatus before advancing his diet. The patient does have incisional pain. Overall, the patient is progressing extremely well, speedier than most patients and should continue to progress well. We will continue to provide supportive care at this stage. Renny Collier M.D. DR: DONN JOB#: [id number] CC:
--- NOTE | 2018-10-09 14:55 | NUR ---
NURSE NOTES: Patient had BM x2. Spoke to regarding discharge and new order received. Order read back and carried out.
[2018-10-09] MEDS ORDERED: OXYCODONE HCL20 M1 ORAL (15:34)
--- NOTE | 2018-10-09 16:19 | NUR ---
NURSE NOTES: Patient discharged with family member in stable condition. Discharge instruction given to patient and verbalized understanding. Prescription and belonging given to patient. Instructed to follow up with MD. IV and ID removed. Patient ambulated out with all personal belongings with steady gait.
[2018-10-09] MEDS ORDERED: 1/2 NS 1000ml IV ONE ×2 (16:26)
--- NOTE | 2018-10-09 18:45 | Progress Note ---
DATE: 10/09/2018 ACUTE PAIN MANAGEMENT PHYSICIAN PROGRESS NOTE MEDICATIONS: Medication administration record reviewed. Medications include Tylenol, Mylanta, Soma, Catapres, Benadryl, Pepcid, Dilaudid, Glucophage, Narcan, Zofran, OxyContin, and Chloraseptic spray. LABORATORY STUDIES: No interval laboratory studies. OBJECTIVE: Vital signs within normal limits. Afebrile. Pulse 71, respirations 18, blood pressure 130/78, and oxygen saturation 95% on room air. I spent over 60 minutes in consultation today. I saw the patient at the bedside with the nurse RN, Ramon, along with the patient's brother. Dr. Astorga ordered magnesium citrate for the patient. After 2/3 of a bottle, the patient had several bowel movements, now the patient is ready to discharge to home. I had a detailed discussion with the patient regarding his narcotic usage here in the hospital, which included OxyContin along with the p.r.n. Dilaudid and oxycodone. I gave the patient a prescription for 75 tablets of oxycodone instant release 20 mg, which the patient will take to the outpatient pharmacy near [place] to get filled later this afternoon. I explained to the patient that since I had been treating the patient with oral 10 mg during his hospital stay that he may need more frequent dosing of the oral oxycodone instant release p.r.n. pills. The patient understands. I did agency legal counsel the patient once again to stop smoking, as continued smoking may be deleterious toward the patient's spinal rehabilitation and fusion. The patient's vital signs have been well controlled. The patient was counseled to be more aware of his diabetic condition and to follow up with his outpatient physicians. The patient will follow up with Dr. Miller in the outpatient surgical clinic for surgical followup. I see no contraindication for discharge trial home at this time. Renny Collier M.D. DR: CAMILO JOB#: [id number] CC:
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
== END 2018-10-09 16:27 | disposition home or self-care (01) | DRG 460 ==
LOC: SDSOVERFLO 07:34 → 3E 16:25
PROC: 3E0U0GB Introduction of Recombinant Bone Morphogenetic Protein into Joints, Open Approach (ICD-10-PCS; principal; 2018-10-04 09:00)
PROC: 0ST40ZZ Resection of Lumbosacral Disc, Open Approach (ICD-10-PCS; principal; 2018-10-04 09:00)
PROC: 4A11X4G Monitoring of Peripheral Nervous Electrical Activity, Intraoperative, External Approach (ICD-10-PCS; principal; 2018-10-04 09:00)
PROC: 0SG30A0 Fusion of Lumbosacral Joint with Interbody Fusion Device, Anterior Approach, Anterior Column, Open Approach (ICD-10-PCS; principal; 2018-10-04 09:00)
DX: M53.2X7 Spinal instabilities, lumbosacral region (principal); G47.33 Obstructive sleep apnea (adult) (pediatric); Z72.0 Tobacco use; E11.9 Type 2 diabetes mellitus without complications; G89.18 Other acute postprocedural pain
CPT/HCPCS: 36415; 72020; 76000; 82962; 83036; 86850; 86900; 86901; 87081; 94003; 94150; J1815; J2405; J2710